=== PATIENT | female | born 2000 | race Hispanic/Latino ===

== ENCOUNTER 2024-03-25 10:03 | Emergency (ER) | payer SELFPAY ==
[2024-03-25 10:05] VITALS: BP 164/92
--- NOTE | 2024-03-25 10:26 | ED.GENMED ---
History of Present Illness
General
Chief Complaint: Fever
Time Seen by Provider: 03/25/24 10:26
History of Present Illness
History of Present Illness:
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 The patient states over the last several weeks she has been having some fevers along with joint pains. She also has an associated headache. The symptoms have been worsening. She has a 'bloated' feeling
in her fingers and feet. She denies any recent travel and states she has been in the night states for the past 3 years.
EXAM:
GENERAL: The patient appears in mild distress with movement of the extremities, she is hypertensive with initial blood pressure 164/92
HEENT: Moist oral mucosa
CARDIOVASCULAR: No murmurs, normal heart rate, regular rhythm, No chest wall tenderness
PULMONARY: No respiratory distress, breath sounds are clear and equal
ABDOMEN: Soft with no peritoneal signs, no tenderness
NEUROLOGIC: Excellent strength all extremities, no coordination deficits
PSYCHIATRIC: Appropriate mental status, normal insight and judgement
EXTREMITIES: Nontender, trace edema at hands and feet, moves all extremities equally
SKIN: No rash, no lesions
TIME OF INITIAL ENCOUNTER: 10:40 AM
NUMBER AND COMPLEXITY OF PROBLEMS ADDRESSED AT THE ENCOUNTER
� Chronic conditions affecting care: Denies past medical history
� Acute Exacerbation and/or Progression of Chronic Illness: This is an acute problem
� Differential Diagnosis includes: Prolonged viral syndrome, Lyme disease, arthropathy
AMOUNT AND/OR COMPLEXITY OF DATA TO BE REVIEWED AND ANALYZED
� I performed an independent evaluation of and my interpretation is:
EKG:
CT:
X-rays:
Laboratory Studies: White count 4.0, hemoglobin 9.9, BUN 20, creatinine 0.5, AST and ALT are minimally elevated in the 40s, C-reactive protein is slightly high at 24.7
Other:
� Review of other/old records: No old records available for review
� Clinical information was obtained by an independent historian: None needed but Language Line use
� Prescriptions/Medications Considered but not given:
� Further testing considered but not performed:
RISK OF COMPLICATIONS AND/OR MORBIDITY OR MORTALITY OF PATIENT MANAGEMENT
� Social determinants of health affecting care: Lives at home, speaks Nepali
� Discussion with other providers:
� Escalation of care including admission/observation vs risk of discharge considered: Will check labs and give IV fluids with Toradol. On reassessment at 1:40 PM, the patient reports some improvement. Unclear etiology of
patient's symptoms. Mild leukopenia noted that she may have a viral syndrome. CRP is noted to be elevated she does have arthralgias�will try a short course of steroids. I also encouraged her to take Benadryl to help with sleeping at night.
Phy Exam
Physical Exam
Physical Exam:
See HPI
Course
Orders/Labs/Results
Orders:
Orders
03/25/24 10:42
0.9% Sodium Chloride 1000 ml [Nss] 1,000 ml IV BOLUS
Ketorolac [Toradol] 15 mg IV NOW STA
03/25/24 10:51
CRP [C-Reactive Protein] Urgent
Complete Blood Count/With Diff Urgent
Comprehensive Metabolic Panel Urgent
Lyme Progressive Routine
Abnormal Lab Results
03/25/24
10:51
WBC 4.0 L 10^3/uL
(4.8-10.8)
Hgb 9.9 L g/dL
(12.0-16.0)
Hct 31.6 L %
(37.0-47.0)
MCV 66.8 L fL
(81.0-99.0)
MCH 20.9 L pg
(27.0-31.0)
MCHC 31.3 L g/dL
(33.0-37.0)
RDW 19.0 H %
(11.5-14.5)
Plt Count 474 H 10^3/uL
(130-400)
BUN 20 H mg/dl
(7-17)
Creatinine 0.5 L mg/dL
(0.6-1.0)
AST 45 H U/L
(14-36)
ALT 43 H U/L
(0-35)
C-Reactive Protein 24.70 H mg/L
(0.0-10.00)
03/25/24 10:51
03/25/24 10:51
Vital Signs
Initial and Last Documented VS:
Initial Vital Signs
Temp Pulse Resp BP Pulse Ox
99.0 F 91 18 164/92 98
03/25/24 10:05 03/25/24 10:05 03/25/24 10:05 03/25/24 10:05 03/25/24 10:05
Last Documented Vital Signs
Temp Pulse Resp BP Pulse Ox
99.0 F 90 27 136/79 98
03/25/24 10:05 03/25/24 12:45 03/25/24 12:45 03/25/24 12:47 03/25/24 12:30
*Critical Care Note
Total Time (30-74mins, 75-104mins- exclusive of procedures): Not Applicable
ED Attending Note
-
Portions of this chart may have been created with voice recognition software.� Occasional wrong word or��sound alike� substitutions may have occurred due to the inherent limitations of voice recognition software.
Discharge Plan
Departure
Patient Disposition: Home (Routine Discharge)
Date of Disposition: 03/25/24
Time of Disposition: 13:43
Patient with high blood pressure during this ER visit?: Yes
Discharge Problem:
Arthralgia
Instructions: Viral Syndrome (DC)
Prescriptions:
New
prednisone 50 mg tablet
50 mg PO DAILY Qty: 5 0RF
Referrals:
NONE,* [Family Provider] -
Activity Restrictions/Additional Instructions:
The cause of your symptoms is unclear. The C-reactive protein (inflammatory marker) is slightly elevated but is non specific. I sent a prescription for prednisone to your pharmacy at the [facility] in [employer] on [address] in [place]. Your white
count was slightly low which can be seen with a viral syndrome. Your hemoglobin is also a little bit low at 9.9. Consider taking iron supplementation. Follow-up with primary care doctor. Return here if worse. Take Benadryl at night to help with
sleeping while on steroids.
Interventions
Interventions:
*Risk Screen - Suicide Last Done: 03/25/24 10:05
*General Assessment Last Done: 03/25/24 10:05
*Neglect/Abuse Screening Last Done: 03/25/24 10:05
*ED COVID-19 Vaccine History Last Done: 03/25/24 10:47
ED- Neurological Assessment Last Done: 03/25/24 10:47
ED-Skin Assessment Last Done: 03/25/24 10:47
Discharge Date and Time
Print Language: FAROESE
[2024-03-25 10:48] VITALS: BP 126/108
[2024-03-25] MEDS: NSS 1000 IV (10:50)
[2024-03-25] MEDS: TORADOL 15 MG IV (10:50)
[2024-03-25 11:00] LABS: % Basophils 0.3 % (0-2); % Immature Granulocytes 0.3 % (0-0.5); % Monocytes 3.5 % (1.7-9.3); % Neutrophils 54.9 % (42.2-75.2); Absolute Eosinophils 0.2 10^3/uL (0-0.7); Absolute Lymphocytes 1.4 10^3/uL (1.2-3.4); Absolute Monocytes 0.1 10^3/uL (0.1-0.6); Absolute Neutrophils 2.2 10^3/uL (1.4-6.5); Hematocrit 31.6 % (37.0-47.0); Hemoglobin 9.9 g/dL (12.0-16.0); Mean Corp Hgb Conc. 31.3 g/dL (33.0-37.0); Mean Corpuscular Hgb 20.9 pg (27.0-31.0); Mean Corpuscular Volume 66.8 fL (81.0-99.0); Mean Platelet Volume 8.6 fL (7.4-10.4); Nucleated Red Blood Cells % 0 %; Platelet Count 474 10^3/uL (130-400); Red Blood Cell Count 4.73 10^6/uL (4.20-5.40)
[2024-03-25 11:16] LABS: ALT (SGPT) 43 U/L (0-35); AST (SGOT) 45 U/L (14-36); Albumin 4.3 g/dl (3.5-5.0); Alkaline Phosphatase 92 U/L (38-126); Blood Urea Nitrogen 20 mg/dl (7-17); Calcium 9.3 mg/dl (8.4-10.2); Carbon Dioxide 23 mmol/L (22-30); Chloride 106 mmol/L (98-107); Glucose 92 mg/dl (70-99); Potassium 4.6 mmol/L (3.5-5.1); Sodium 138 mmol/L (135-145); Total Bilirubin 0.8 mg/dl (0.2-1.3); Total Protein 7.9 g/dl (6.3-8.2); eGFR > 60.00
[2024-03-25 12:47] VITALS: BP 136/79
[2024-03-25 13:57] VITALS: BP 132/77
[2024-03-25 15:50] LABS: Lyme Antibody Screen, EIA Negative (Negative)
== END 2024-03-25 13:59 | disposition home or self-care (01) ==
LOC: EMR 10:03
PROVIDERS: EMERGENCY PHYSICIAN Emergency Medicine
DX: M25.50 Pain in unspecified joint (principal)
CPT/HCPCS: 99283; 96374; 96361; 80053; 85025; 86140; 86618

== ENCOUNTER 2024-04-02 08:09 | Emergency (ER) | payer SELFPAY ==
[2024-04-02 08:15] VITALS: BP 185/107
--- NOTE | 2024-04-02 09:06 | ED.GENMED ---
History of Present Illness
<Anahy Toscano PA-C - Last Filed: 04/02/24 18:51>
General
Chief Complaint: Abdominal Pain
Source: patient
Exam Limitations: none
Time Seen by Provider: 04/02/24 09:00
Nursing documentation reviewed up to this point in time: agreed with
History of Present Illness
History of Present Illness:
Patient is a 24-year-old female presenting for evaluation of multiple complaints today. Patient states that for the past 10 days she has had body aches, headache, sore throat, and subjective fevers. Starting a few days ago�she endorses left upper
quadrant abdominal pain and yesterday started with diarrhea. In addition�patient does note recent urinary burning. Patient denies any chest pain. Patient denies any nausea or vomiting.
Of note�patient was seen in our emergency department 1 week ago with similar symptoms. Labs were done which showed a mild leukopenia and otherwise no clinically significant abnormalities. Patient was discharged with diagnosis of likely viral
infection and treated with a course of steroids. A Lyme test was sent which ended up being negative. Patient does state that steroids helped for a few days but symptoms have since returned.
Body aches have become so severe the patient is unable to walk or stand. Patient denies any recent bug bites or rashes. Patient denies any other sick contacts
Review of Systems
<Anahy Toscano PA-C - Last Filed: 04/02/24 18:51>
Review of Systems
Allergies reviewed?: Yes
All Other Systems: ROS reviewed and negative except as documented in HPI and ROS
Phy Exam
<Anahy Toscano PA-C - Last Filed: 04/02/24 18:51>
Physical Exam
Physical Exam:
Vitals: Mildly tachycardic, hypertensive. Afebrile
General: Patient is mildly uncomfortable appearing, nontoxic appearing.
Skin: Warm and dry, no rashes or lesions
Head: Normocephalic, atraumatic
Eyes: Sclera nonicteric. EOMs intact. No nystagmus. Pupils equal round and reactive to light bilaterally.
Throat: Posterior pharynx mildly erythematous without any tonsillar edema or exudates. Uvula midline. Protecting airway
Neck: Normal ROM, no cervical spine tenderness, no meningismus. No midline spinal tenderness.
Cardiac: Regular rate and rhythm, no murmurs.
Pulm: Normal respiratory effort, no wheezes, rales, rhonchi heard on exam.
Abdomen: Abdomen soft. Mild LUQ tenderness. No rebound tenderness or guarding. No CVA tenderness
Extremities: No evidence of cyanosis or edema. Great distal pulses.
Neuro: AAOx3. CN II-XII intact. No focal neurologic deficits.
Psychiatric: Normal affect.
Course
<Anahy Toscano PA-C - Last Filed: 04/02/24 18:51>
Orders/Labs/Results
Orders:
Orders
04/02/24 09:24
0.9% Sodium Chloride 1000 ml [Nss] 1,000 ml IV BOLUS
Ketorolac [Toradol] 15 mg IV NOW STA
Test Result ONCE
04/02/24 09:28
CT Abd/Pel (IV only)-DH only Urgent
Comment:
Reason For Exam: LUQ pain, diarrhea
04/02/24 09:32
Complete Blood Count/With Diff Urgent
Comprehensive Metabolic Panel Urgent
HCG, Serum Qualitative Screen Urgent
Monotest Urgent
Blood Culture Q30M
JOAN Source: Blood/Venous
Specimen Description:
Blood Culture Q30M
JOAN Source: Blood/Venous
Specimen Description:
04/02/24 11:23
Urinalysis Reflex To Culture Urgent
Date Specimen was Collected: 04/02/24
Time Specimen was Collected: 11:21
04/02/24 11:33
COVID-19 Antigen Urgent
Source: Nasal Swab
04/02/24 12:10
Diphenhydramine [Benadryl] 25 mg IV NOW STA
Prochlorperazine [Compazine] 10 mg IV NOW STA
04/02/24 13:01
Rapid Strep Group A Urgent
JOAN Source: Throat/Pharynx
Specimen Description:
Date Specimen was Collected: 04/02/24
Time Specimen was Collected: 13:00
Throat Culture [Throat Culture, Comprehensive] Urgent
JOAN Source: Throat/Pharynx
Specimen Description:
Date Specimen was Collected: 04/02/24
Time Specimen was Collected: 13:00
Abnormal Lab Results
04/02/24
09:32
WBC 4.5 L 10^3/uL
(4.8-10.8)
Hgb 9.8 L g/dL
(12.0-16.0)
Hct 31.7 L %
(37.0-47.0)
MCV 67.2 L fL
(81.0-99.0)
MCH 20.8 L pg
(27.0-31.0)
MCHC 30.9 L g/dL
(33.0-37.0)
RDW 19.7 H %
(11.5-14.5)
Plt Count 498 H 10^3/uL
(130-400)
Creatinine 0.5 L mg/dL
(0.6-1.0)
ALT 56 H U/L
(0-35)
04/02/24 09:32
04/02/24 09:32
Vital Signs
Temp: 98.7 F
Pulse: 91
Initial and Last Documented VS:
Initial Vital Signs
Temp Pulse Resp BP Pulse Ox
99.5 F 107 22 185/107 100
04/02/24 08:15 04/02/24 08:15 04/02/24 08:15 04/02/24 08:15 04/02/24 08:15
Last Documented Vital Signs
Temp Pulse Resp BP Pulse Ox
98.4 F 100 20 136/69 99
04/02/24 14:12 04/02/24 14:12 04/02/24 14:12 04/02/24 14:12 04/02/24 14:12
<Panfilo Rios, DO - Last Filed: 04/02/24 09:46>
Orders/Labs/Results
Orders:
Orders
04/02/24 09:24
0.9% Sodium Chloride 1000 ml [Nss] 1,000 ml IV BOLUS
Ketorolac [Toradol] 15 mg IV NOW STA
Test Result ONCE
04/02/24 09:28
CT Abd/Pel (IV only)-DH only Urgent
Comment:
Reason For Exam: LUQ pain, diarrhea
04/02/24 09:32
Complete Blood Count/With Diff Urgent
Comprehensive Metabolic Panel Urgent
HCG, Serum Qualitative Screen Urgent
Monotest Urgent
Blood Culture Q30M
JOAN Source: Blood/Venous
Specimen Description:
Blood Culture Q30M
JOAN Source: Blood/Venous
Specimen Description:
04/02/24 11:23
Urinalysis Reflex To Culture Urgent
Date Specimen was Collected: 04/02/24
Time Specimen was Collected: 11:21
04/02/24 11:33
COVID-19 Antigen Urgent
Source: Nasal Swab
04/02/24 12:10
Diphenhydramine [Benadryl] 25 mg IV NOW STA
Prochlorperazine [Compazine] 10 mg IV NOW STA
04/02/24 13:01
Rapid Strep Group A Urgent
JOAN Source: Throat/Pharynx
Specimen Description:
Date Specimen was Collected: 04/02/24
Time Specimen was Collected: 13:00
Throat Culture [Throat Culture, Comprehensive] Urgent
JOAN Source: Throat/Pharynx
Specimen Description:
Date Specimen was Collected: 04/02/24
Time Specimen was Collected: 13:00
Abnormal Lab Results
04/02/24
09:32
WBC 4.5 L 10^3/uL
(4.8-10.8)
Hgb 9.8 L g/dL
(12.0-16.0)
Hct 31.7 L %
(37.0-47.0)
MCV 67.2 L fL
(81.0-99.0)
MCH 20.8 L pg
(27.0-31.0)
MCHC 30.9 L g/dL
(33.0-37.0)
RDW 19.7 H %
(11.5-14.5)
Plt Count 498 H 10^3/uL
(130-400)
Creatinine 0.5 L mg/dL
(0.6-1.0)
ALT 56 H U/L
(0-35)
04/02/24 09:32
04/02/24 09:32
Vital Signs
Initial and Last Documented VS:
Initial Vital Signs
Temp Pulse Resp BP Pulse Ox
99.5 F 107 22 185/107 100
04/02/24 08:15 04/02/24 08:15 04/02/24 08:15 04/02/24 08:15 04/02/24 08:15
Last Documented Vital Signs
Temp Pulse Resp BP Pulse Ox
98.4 F 100 20 136/69 99
04/02/24 14:12 04/02/24 14:12 04/02/24 14:12 04/02/24 14:12 04/02/24 14:12
<Anahy Toscano PA-C - Last Filed: 04/02/24 18:51>
MDM/Problems Addressed
Differential Diagnosis Includes:
Not limited to: Viral illness, mono, dehydration, Lyme disease, splenomegaly, colitis,
MDM/Problems Addressed:
24-year-old female presenting with headache, body aches, fatigue with for the past few weeks. Patient seen in the ER about a week ago with normal lab work and negative Lyme test. Discharged with short course of steroids for suspected viral
infection. Patient returns with persistent body aches, headache and now left upper quadrant abdominal discomfort. Patient is hypertensive, very mildly tachycardic on arrival. Physical exam as above. Patient is nontoxic-appearing, although in
mild distress due to headache. There are no meningeal signs. Heart regular rate and rhythm. Lungs clear bilaterally. She does have mild left upper quadrant tenderness. Great distal pulses. Will obtain labs, urinalysis. Will check mono and
COVID test. Will check rapid strep test. Will check CT abdomen/pelvis. Blood cultures will be sent given duration of symptoms. Will give IV fluids, Toradol for headache. Will closely monitor and reassess.
Labs noted. Mild leukopenia with white count of 4.5-mildly increased from yesterday. This could be consistent with a likely viral origin. Patient mildly anemic with hemoglobin of 9.8 which is actually slightly increased from last week. Otherwise
labs unremarkable. Both mono and COVID test were negative. Rapid strep test negative. Throat culture will be sent. Urine shows no signs of infection. CT abdomen/pelvis pending. Patient does report that headache did improve Toradol but is now
beginning to come back. Will treat with Compazine/Benadryl.
CT negative for any acute intra-abdominal pathology. Patient was in room eating sandwich and sitting up giggling with significant other when nurse went to assess vital signs.
On my reassessment the patient does appear more comfortable than upon arrival. Vital signs have normalized. Recheck patient's temperature in room which was 98.7 F. Entire work appears been negative. Symptoms most consistent with a likely viral
etiology. No indication for admission. Patient will be discharged with close return precautions, follow-up with free clinic. Lengthy discussion with patient regarding return precautions. Recommended Tylenol/Motrin, lidocaine patches as needed
for discomfort. Stay well-hydrated. Patient expressed understanding and is comfortable with plan.
Chronic conditions affecting care:
N/A
Acute Exacerbation and/or Progression of Chronic Illness:
N/A
<Anahy Toscano PA-C - Last Filed: 04/02/24 18:51>
*Radiology
Radiology exam reviewed: preliminary read by ED provider and radiology read reviewed
*Pulse Oximetry
Patient hypoxic: no
*EKG
Interpreted by ED Provider?: NA
*Travel Journalist Interpretation
Rate: normal
Interpretation: normal
Heart Rate: 93
Rhythm: sinus
*Critical Care Note
Total Time (30-74mins, 75-104mins- exclusive of procedures): Not Applicable
ED Attending Note
<Anahy Toscano PA-C - Last Filed: 04/02/24 18:51>
-
Portions of this chart may have been created with voice recognition software.� Occasional wrong word or��sound alike� substitutions may have occurred due to the inherent limitations of voice recognition software.
<Panfilo Rios DO - Last Filed: 04/02/24 09:46>
ED Attending Note
Patient seen and examined by attending physician: Yes
I performed the substantive portion of visit, reviewed & personally made and approve the management plan that is documented in note by myself or ATUL.: Yes
ED Attending Note:
I have seen and evaluated the patient with a [id number] encounter. I have spoken to the advance practicer provider and involved in the medical history, the physical exam, medical decision making.
Evaluation and management service: agree unless noted differently below.
Results interpretation: agree unless noted differently below.
Focused HPI: 24-year-old female presenting with upper abdominal pain and subjective fevers
Physical exam: On exam, she is sitting bed comfortably. Her abdomen exam is distractible. She complains of left upper quadrant pain. There is mild tenderness to palpation
Medical Decision Making: Given her ongoing symptoms, will obtain CT
Discharge Plan
Departure
Patient Disposition: Home (Routine Discharge)
Date of Disposition: 04/02/24
Time of Disposition: 13:39
Patient with high blood pressure during this ER visit?: Yes
Condition: Good
Covid-19: Negative COVID-19
Discharge Problem:
Headache, Myalgia, Abdominal pain
Instructions: Abdominal Pain, Adult ED, Headache, Adult ED, Muscle and bone pain - Discharge instructions
Prescriptions:
No Action
prednisone 50 mg tablet
50 mg PO DAILY Qty: 5 0RF
Referrals:
[facility] - Next open appointment
UNKNOWN - PT DOES,NOT KNOW [Family Provider] -
Activity Restrictions/Additional Instructions:
RETURN TO THE EMERGENCY DEPARTMENT WITH HIGH FEVERS, SEVERE HEADACHE/NECK PAIN, SEVERE ABDOMINAL PAIN, INTRACTABLE NAUSEA/VOMITING, WORSENING IN CURRENT SYMPTOMS, OR ANY OTHER CONCERNS
-As discussed�we are unsure the exact cause of your symptoms today. This may be caused by a viral infection. You should continue to monitor your symptoms closely at home and return with any acute worsening/new symptoms. You must follow-up with a
primary care provider. I provided the contact information for a free clinic above. Your hemoglobin was slightly low today. You should have this rechecked with a primary care provider.
-You should continue to stay well-hydrated at home. Take Tylenol and/or Motrin as needed for any discomfort. You can try ice/heating packs for body aches. Lidocaine patches as needed. Stay well rested.
Interventions
Interventions:
*Risk Screen - Suicide Last Done: 04/02/24 14:03
*General Assessment Last Done: 04/02/24 14:03
*Neglect/Abuse Screening Last Done: 04/02/24 14:03
*ED COVID-19 Vaccine History Last Done: 04/02/24 14:03
*Nursing Disposition Last Done: 04/02/24 14:13
[id number] Assessment Last Done: 04/02/24 14:03
Discharge Date and Time
Discharge Date/Time: 04/02/24 14:18
Print Language: MAURITIAN
[2024-04-02 09:24] VITALS: BP 123/105
[2024-04-02] MEDS: NSS 1000 IV (09:43)
[2024-04-02] MEDS: TORADOL 15 MG IV (09:43)
[2024-04-02 09:52] LABS: % Basophils 0.2 % (0-2); % Eosinophils 2.4 % (0-6); % Immature Granulocytes 0.2 % (0-0.5); % Lymphocytes 28.4 % (20.5-51.1); % Monocytes 4.2 % (1.7-9.3); % Neutrophils 64.6 % (42.2-75.2); Absolute Eosinophils 0.1 10^3/uL (0-0.7); Absolute Lymphocytes 1.3 10^3/uL (1.2-3.4); Absolute Monocytes 0.2 10^3/uL (0.1-0.6); Absolute Neutrophils 2.9 10^3/uL (1.4-6.5); Hematocrit 31.7 % (37.0-47.0); Hemoglobin 9.8 g/dL (12.0-16.0); Mean Corp Hgb Conc. 30.9 g/dL (33.0-37.0); Mean Corpuscular Hgb 20.8 pg (27.0-31.0); Mean Corpuscular Volume 67.2 fL (81.0-99.0); Mean Platelet Volume 8.7 fL (7.4-10.4); Nucleated Red Blood Cells % 0 %; Platelet Count 498 10^3/uL (130-400); Red Blood Cell Count 4.72 10^6/uL (4.20-5.40); Red Cell Dist. Width 19.7 % (11.5-14.5); White Blood Cell Count 4.5 10^3/uL (4.8-10.8)
[2024-04-02 10:05] LABS: ALT (SGPT) 56 U/L (0-35); AST (SGOT) 26 U/L (14-36); Alkaline Phosphatase 90 U/L (38-126); Blood Urea Nitrogen 15 mg/dl (7-17); Calcium 9.4 mg/dl (8.4-10.2); Carbon Dioxide 25 mmol/L (22-30); Chloride 104 mmol/L (98-107); Glucose 91 mg/dl (70-99); HCG, Serum Qualitative Screen Negative; Potassium 4.6 mmol/L (3.5-5.1); Sodium 136 mmol/L (135-145); Total Bilirubin 0.9 mg/dl (0.2-1.3); Total Protein 7.3 g/dl (6.3-8.2); eGFR > 60.00
[2024-04-02 10:17] LABS: Monotest Negative (Negative)
[2024-04-02 11:41] LABS: Urine Albumin Negative (Neg - Trace); Urine Bilirubin Negative (Negative); Urine Character Slightly Cloudy (Clear); Urine Color Yellow; Urine Glucose Negative (Negative); Urine Ketone Negative (Negative); Urine Leukocyte Negative (Negative); Urine Nitrite Negative (Negative); Urine Occult Blood Negative (Negative); Urine Urobilinogen Negative (Neg - 1+); Urine pH 6.5 (5.0-9.0)
[2024-04-02 12:10] LABS: COVID-19 Antigen Negative (Negative)
[2024-04-02] MEDS: COMPAZINE 10 MG IV (12:29)
[2024-04-02] MEDS: BENADRYL 25 MG IV (12:29)
[2024-04-02 14:12] VITALS: BP 136/69
== END 2024-04-02 14:18 | disposition home or self-care (01) ==
LOC: EMR 08:09
PROVIDERS: Physician Assistant; EMERGENCY PHYSICIAN Student in an Organized Health Care Education/Training Program
DX: R51.9 Headache, unspecified (principal); M79.10 Myalgia, unspecified site; R10.12 Left upper quadrant pain; D64.9 Anemia, unspecified; I10 Essential (primary) hypertension
CPT/HCPCS: 99284; 96374; 96375; 96361; 74177; 80053; 81003; 84703; 85025; 86308; 87040; 87070; 87811; 87880; Q9967